=== PATIENT | female | born 1940 ===

== ENCOUNTER 2017-01-02 14:21 | Day surgery (SDC) | payer OTHER ==
[2017-01-02 08:57] VITALS: PULSE 120
[2017-01-02] MEDS ORDERED: Lidocaine 2% Inj (20ml) ONE (15:46)
[2017-01-02] MEDS ORDERED: Iodixanol 320 MG/ML 200 ML BOTTLE IV ONE (15:47)
[2017-01-02] MEDS ORDERED: Midazolam 2 MG/2 ML VIAL ONE (15:47)
--- NOTE | 2017-01-02 16:43 | CARD ---
APPROVED REPORT Procedure(s) performed: Left Heart Catheterization Left Ventriculogram Selective Right and Left Coronary Angiography HISTORY with oral treatment , dyslipidemia . INDICATION The indication(s) include : non-STEMI . CASE TECHNIQUE Hemostasis was obtained with manual pressure following sheath removal without any complications. The patient tolerated the procedure well and there were no complications associated with the procedure. Vessel Analysis The patient's coronary anatomy is right dominant. The left main coronary artery is a medium size vessel free of disease. The left main bifurcates to the left anterior descending and circumflex. The left anterior descending artery is a medium size vessel free of disease. The circumflex artery is a medium size vessel free of disease. The right coronary artery is a medium size vessel free of disease. Left Ventricle The left ventricular ejection fraction is estimated to be 55%. There was no gradient across the aortic valve upon pullback. Conclusion No angiographic evidence of CAD. Normal left ventricular function. Recommendations Aggressive Medical Therapy consider EP evaluation. Patient had episode of 2:1 AV block during the procedure.
--- NOTE | 2017-01-02 16:52 | CP.PCM.PN ---
Subjective - Date & Time of Evaluation Date of Evaluation: 01/02/17 Time of Evaluation: 16:45 - Subjective Subjective: patient is s/p cardiac cath revealing no significant CAD. medical therapy.
[2017-01-02] MEDS ORDERED: Sodium Chloride 0.9% 1,000 ML IV SCH (17:00)
[2017-01-02 19:34] VITALS: O2SAT 100
[2017-01-02 21:01] VITALS: RESP 18
[2017-01-02 21:03] VITALS: BP 105/61; PULSE 62; TEMP 98.1
== END 2017-01-02 21:09 | disposition short-term general hospital (02) ==
LOC: CATH 14:21 → 2RSO 17:20 → CATH 21:09
PROVIDERS: ATTEND Internal Medicine Cardiovascular Disease
DX: R07.9 Chest pain, unspecified (principal); E78.5 Hyperlipidemia, unspecified
CPT/HCPCS: 93458; 99152; C1769; C2629; J1644; J2250; J3010; J7040 ×2